=== PATIENT | male | born 1975 | race Hispanic/Latino ===

== ENCOUNTER 2017-11-23 11:22 | Emergency (ER) | payer OTHER ==
[2017-11-23 11:29] VITALS: BMI 31.9
[2017-11-23] MEDS ORDERED: Alum-Mag Hydrox-Simethicone Susp (30 mL) PO STA (12:06)
[2017-11-23] MEDS ORDERED: Alum-Mag Hydrox-Simethicone Susp (30 mL) ONE (12:42)
[2017-11-23 13:24] LABS: BASO % 0.2 % (0.0-2.0); EOS # 0.3 K/uL (0.0-0.7); EOS % 2.3 % (0.0-4.0); LYMPH # 2.5 K/uL (1.0-4.3); LYMPH % 21.7 % (20.0-40.0); MEAN CELL VOLUME 92.9 fl (80.0-94.0); MEAN CORPUSCULAR HEMOGLOBIN 31.8 pg (27.0-31.0); MEAN CORPUSCULAR HGB CONC 34.3 g/dL (33.0-37.0); MEAN PLATELET VOLUME 7.9 fl (7.2-11.7); MONO # 1.1 K/uL (0.0-0.8); MONO % 9.3 % (0.0-10.0); NEUT # 7.8 K/uL (1.8-7.0); NEUT % 66.5 % (50.0-75.0); RBC 4.72 Mil/uL (4.40-5.90); RED CELL DISTRIBUTION WIDTH 12.7 % (11.5-14.5); WHITE BLOOD COUNT 11.7 K/uL (4.8-10.8)
[2017-11-23 13:37] LABS: ALB/GLOB RATIO 1.4 (1.0-2.1); ALBUMIN 4.1 g/dL (3.5-5.0); ALT/SGPT 50 U/L (21-72); AST/SGOT 29 U/L (17-59); BLOOD UREA NITROGEN 13 mg/dl (9-20); CALCIUM 9.3 mg/dL (8.4-10.2); GFR AFRICAN-AMERICAN > 60; GFR NON-AFRICAN AMERICAN > 60; LIPASE 72 U/L (23-300)
--- NOTE | 2017-11-23 15:27 | ED PDOC ---
HPI: General Adult Time Seen by Provider: 11/23/17 11:30 Chief Complaint (Nursing): ENT Problem Chief Complaint (Provider): Burning in the throat History Per: Patient History/Exam Limitations: no limitations Onset/Duration Of Symptoms: Days Have you had recent travel within the past 21 days to any of the following countries: [place], [place], [place] or [place]?: No Current Symptoms Are (Timing): Still Present Additional Complaint(s): 41 yo male with history of acid reflux presents with burning in the throat. PT states last week he quit smoking because of viral illness. Pt states over the weekend he began smoking again and went out for drinks. Pt states the next day he began to have burning in the throat and upset stomach. PT states this is the same as when he had acid reflux. Past Medical History Reviewed: Historical Data, Nursing Documentation, Vital Signs Vital Signs: Last Vital Signs Temp 96 F L 11/23/17 11:28 Pulse 109 H 11/23/17 11:28 Resp BP 125/60 11/23/17 11:28 Pulse Ox 98 11/23/17 15:31 - Medical History PMH: Anxiety, Depression - Surgical History Surgical History: No Surg Hx - Family History Family History: States: No Known Family Hx - Home Medications Home Medications: Ambulatory Orders Medication Instructions Recorded Omeprazole Magnesium [Prilosec Otc] 20 mg PO DAILY #28 tablet. 11/23/17 - Allergies Allergies/Adverse Reactions: Allergies Allergy/AdvReac Type Severity Reaction Status Date / Time No Known Allergies Allergy Verified 11/23/17 11:32 Review of Systems ROS Statement: Except As Marked, All Systems Reviewed And Found Negative Constitutional: Negative for: Fever, Chills ENT: Positive for: Throat Pain Physical Exam - Reviewed Nursing Documentation Reviewed: Yes Vital Signs Reviewed: Yes - Physical Exam Appears: Positive for: Well, Non-toxic, No Acute Distress Head Exam: Positive for: ATRAUMATIC, NORMAL INSPECTION, NORMOCEPHALIC Skin: Positive for: Normal Color, Warm, DRY Eye Exam: Positive for: Normal appearance ENT: Positive for: Normal ENT Inspection Neck: Positive for: Normal, Painless ROM Cardiovascular/Chest: Positive for: Regular Rate, Rhythm Respiratory: Positive for: Normal Breath Sounds. Negative for: Accessory Muscle Use, Respiratory Distress Gastrointestinal/Abdominal: Positive for: Normal Exam, Bowel Sounds, Soft. Negative for: Tenderness Back: Positive for: Normal Inspection Extremity: Positive for: Normal ROM Neurologic/Psych: Positive for: Alert, Oriented - Laboratory Results Result Diagrams: 11/23/17 13:12 11/23/17 13:12 - ECG O2 Sat by Pulse Oximetry: 98 Disposition - Clinical Impression Clinical Impression: Acid reflux, Gastritis - Patient ED Disposition Is Patient to be Admitted: No - Disposition Disposition: Routine/Home Disposition Time: 15:27 Condition: GOOD Prescriptions: Omeprazole Magnesium [Prilosec Otc] 20 mg PO DAILY #28 tablet. Instructions: Gastritis, Acid Reflux (Gastroesophageal Reflux Disease), Adult ( [place]) Forms: [facility] ([place]), [facility] ED School/Work Excuse
[2017-11-23 16:08] VITALS: BP 108/57; PULSE 89; RESP 16; TEMP 98.3
[2017-11-23 16:19] VITALS: O2SAT 98
== END 2017-11-23 16:23 | disposition home or self-care (01) ==
LOC: H.ER 11:22
DX: K21.9 Gastro-esophageal reflux disease without esophagitis (principal); Z87.891 Personal history of nicotine dependence; K29.70 Gastritis, unspecified, without bleeding; Z86.59 Personal history of other mental and behavioral disorders